=== PATIENT | female | born 1940 | race Caucasian/White ===

== ENCOUNTER 2017-01-07 09:02 | Emergency (ER) | payer BC, OTHER ==
[2017-01-07 09:06] VITALS: TEMP 97.7; BMI 34.9
[2017-01-07 09:46] LABS: BASOPHIL 0.5 % (0-2.0); EOSINOPHIL 2.7 % (0-4.5); MCH 30.6 pg (25.7-33.7); MCHC 33.2 g/dl (32.0-36.0); MEAN CELL VOLUME 92.3 fl (80-96); NEUTROPHILS 60.2 % (42.8-82.8); PLATELET COUNT 169 K/MM3 (134-434); RDW 14.6 % (11.6-15.6); WHITE BLOOD COUNT 5.2 K/mm3 (4.0-10.0)
--- NOTE | 2017-01-07 09:50 | PDOC ---
History of Present Illness - General Chief Complaint: Pain Stated Complaint: PAIN Abd/ diarrhea Time Seen by Provider: 01/07/17 09:43 History Source: Patient Exam Limitations: No Limitations - History of Present Illness Travel History: No Initial Comments: 01/07/17 11:37 76-year-old female with HTN presents to the emergency department complaining of lower abdominal pain 4 days. Pain is described as 5/10 dull nonradiating intermittent discomfort. There are no exacerbating or alleviating factors. Pain is associated with nausea but she denies vomiting, fever/chills, chest pain, shortness of breath, flank pains, urinary symptoms: Frequency/urgency/hesitancy , hematuria. Patient tried taking Nexium without relief. Timing/Duration: reports: intermittent Quality: reports: mild Abdominal Pain Onset Location: reports: RLQ, LLQ, epigastric Pain Radiation: reports: no radiation Aggravating Factors: improves with: None Alleviating Factors: improves with: None Past History - Past Medical History Allergies/Adverse Reactions: Allergies Allergy/AdvReac Type Severity Reaction Status Date / Time valsartan [From Diovan] Allergy THROAT Verified 01/07/17 09:06 SWELLING, SEVERE HYPOTENSION Home Medications: Ambulatory Orders Levothyroxine Sodium [Synthroid] 100 mcg PO DAILY 12/10/11 Lisinopril [Prinivil] 20 mg PO DAILY 07/31/15 Anemia: No Asthma: Yes Cancer: No Cardiac Disorders: No CVA: No COPD: No CHF: No Dementia: No Diabetes: No GI Disorders: Yes (REFLUX) Disorders: Yes (UREGENCY, STRESS INCONTINENCE) HTN: Yes Hypercholesterolemia: No Liver Disease: No Seizures: No Thyroid Disease: Yes (HYPO) Other medical history: Ostearthritis - Surgical History Abdominal Surgery: No Appendectomy: No Cardiac Surgery: No Cholecystectomy: Yes Lung Surgery: No Neurologic Surgery: No Orthopedic Surgery: Yes (R KNEE ARTHROSCOPY) - Immunization History Td Vaccination: Yes TDAP Vaccination: Yes Immunization Up to Date: No - Psycho/Social/Smoking Cessation Hx Anxiety: No Suicidal Ideation: No Smoking Status: No Smoking History: Never smoked Number of Cigarettes Smoked Daily: 0 Cigars Per Day: 0 Information on smoking cessation initiated: No Hx Alcohol Use: No Drug/Substance Use Hx: No Substance Use Type: None Hx Substance Use Treatment: No Abd/GI Specific PMHX - Complaint Specific PMHX GERD: Yes Review of Systems - Review of Systems Able to Perform ROS?: Yes Comments:: 01/07/17 09:49 CONSTITUTIONAL: Absent: fever, chills, diaphoresis, generalized weakness, malaise, loss of appetite HEENT: Absent: rhinorrhea, nasal congestion, throat pain, throat swelling, difficulty swallowing, mouth swelling, ear pain, eye pain, visual Changes CARDIOVASCULAR: Absent: chest pain, loss of consciousness, palpitations, irregular heart rate, peripheral edema RESPIRATORY: Absent: cough, shortness of breath, dyspnea with exertion, orthopnea, wheezing, stridor, hemoptysis GASTROINTESTINAL: +lower abd diffuse Absent:, abdominal distension, nausea, vomiting, diarrhea, constipation, melena , hematochezia GENITOURINARY: Absent: dysuria, frequency, urgency, hesitancy, hematuria, flank pain, genital pain MUSCULOSKELETAL: Absent: myalgia, arthralgia, joint swelling SKIN: Absent: rash, itching, pallor HEMATOLOGIC/IMMUNOLOGIC: Absent: easy bleeding, easy bruising, lymphadenopathy, frequent infections ENDOCRINE: Absent: unexplained weight gain, unexplained weight loss, heat intolerance, cold intolerance NEUROLOGIC: Absent: headache, focal weakness or paresthesias, dizziness, unsteady gait, seizure, mental status changes, bladder or bowel incontinence PSYCHIATRIC: Absent: anxiety, depression, suicidal or homicidal ideation, hallucinations. Is the patient limited Turkmen proficient: No *Physical Exam - Vital Signs Last Vital Signs Temp Pulse Resp BP Pulse Ox 97.7 F 53 L 17 144/74 99 01/07/17 09:04 01/07/17 09:04 01/07/17 09:04 01/07/17 09:04 01/07/17 09:04 - Physical Exam Comments: 01/07/17 09:49 GENERAL: Well developed, well nourished. Awake and alert. No acute distress. HEENT: Normocephalic, atraumatic. PERRLA, EOMI. No conjunctival pallor. Sclera are non- icteric. Moist mucous membranes. Oropharynx is clear. NECK: Supple. Full ROM. No JVD. Carotid pulses 2+ and symmetric, without bruits. No thyromegaly. No lymphadenopathy. CARDIOVASCULAR: Regular rate and rhythm. No murmurs, rubs, or gallops. Distal pulses are 2+ and symmetric. PULMONARY: No evidence of respiratory distress. Lungs clear to auscultation bilaterally. No wheezing, rales or rhonchi. ABDOMINAL: Soft. Non-tender. Non-distended. No rebound or guarding. No organomegaly. Normoactive bowel sounds. MUSCULOSKELETAL Normal range of motion at all joints. No bony deformities or tenderness. No CVA tenderness. EXTREMITIES: No cyanosis. No clubbing. No edema. No calf tenderness. SKIN: Warm and dry. Normal capillary refill. No rashes. No jaundice. NEUROLOGICAL: Alert, awake, appropriate. Cranial nerves 2-12 intact. No deficits to light touch and temperature in face, upper extremities and lower extremities. No motor deficits in the in face, upper extremities and lower extremities. Normoreflexic in the upper and lower extremities. Normal speech. Toes are down- going bilaterally. Gait is normal without ataxia. PSYCHIATRIC: Cooperative. Good eye contact. Appropriate mood and affect. ED Treatment Course - LABORATORY CBC & Chemistry Diagram: 01/07/17 09:36 01/07/17 09:36 Progress Note - Progress Note Progress Note: 1318hrs: Spoke to Rad[employer]; CAT scan abdomen and pelvis with by mouth and IV contrast impression: Thickening of the proximal to addendum mainly involving the second portion with inadequate distention of the junction of the gastric antrum and duodenum that maybe they can as well. There is also thickening of the distal small bowel loops in the lower abdomen and pelvis with sparing of the terminal ileum suggestive of enteritis, inflammatory versus infectious. Normal-appearing appendix. Minimal free fluid in the right lower quadrant/right hemipelvis of uncertain etiology. 1352hrs: Spoke to Dr. Rousseau/ covering for DR. Becker. will consult in the ER 1520hrs: Seen by GI/Dr. Rousseau, states to d/c and f/u outpt *DC/Admit/Observation/Transfer Diagnosis at time of Disposition: Abdominal pain Qualifiers: Abdominal location: generalized Qualified Code(s): R10.84 - Generalized abdominal pain - Discharge Dispostion Disposition: HOME Condition at time of disposition: Stable Admit: No - Referrals Referrals: Stan Rousseau MD [Staff Physician] - - Patient Instructions Printed Discharge Instructions: DI for Abdominal Pain-Adult Additional Instructions: Follow up with the robotic maintenance technician this week Return to the ER for severe/persistent/worsening symptoms
[2017-01-07 10:09] LABS: ALBUMIN 3.3 g/dl (3.4-5.0); ANION GAP 3 (8-16); BILIRUBIN,TOTAL 0.4 mg/dL (0.2-1.0); CALCIUM 8.5 mg/dL (8.5-10.1); CO2 31 mmol/L (21-32); CREATININE 0.7 mg/dL (0.55-1.02); GLUCOSE,RANDOM 102 mg/dL (74-106); SGOT/AST 39 U/L (15-37); SGPT/ALT 48 U/L (12-78)
[2017-01-07 10:10] LABS: ALK PHOS 71 U/L (45-117); TOT PROT 6.7 g/dl (6.4-8.2)
--- NOTE | 2017-01-07 10:13 | PDOC ---
*Physical Exam - Vital Signs Last Vital Signs Temp Pulse Resp BP Pulse Ox 97.7 F 53 L 17 144/74 99 01/07/17 09:04 01/07/17 09:04 01/07/17 09:04 01/07/17 09:04 01/07/17 09:04 ED Treatment Course - LABORATORY CBC & Chemistry Diagram: 01/07/17 09:36 01/07/17 09:36 - ADDITIONAL ORDERS Additional order review: Laboratory Results 01/07/17 09:36 Total Amylase 52 Medical Decision Making - Medical Decision Making 01/07/17 10:12 76 yo F presenting to the Er with a complaint of abdominal pain CT: Bowel wall thickening suggestive of enteritis, inflammatory versus infectious. Normal-appearing appendix. Minimal free fluid in the right lower quadrant/right hemipelvis of uncertain etiology. Pt seen by Midlevel Provider under my direct supervision Pt interviewed and examined Ancillary studies reviewed Case reviewed with GI I agree with plan as outlined by Midlevel Provider *DC/Admit/Observation/Transfer Diagnosis at time of Disposition: Abdominal pain - Discharge Dispostion Disposition: HOME Condition at time of disposition: Stable - Referrals Referrals: Stan Rousseau MD [Staff Physician] - - Patient Instructions Printed Discharge Instructions: DI for Abdominal Pain-Adult Additional Instructions: Follow up with the metal window frame maker this week Return to the ER for severe/persistent/worsening symptoms
[2017-01-07 15:42] VITALS: BP 145/72; PULSE 61
== END 2017-01-07 15:41 | disposition home or self-care (01) ==
LOC: JER 09:02
DX: R10.84 Generalized abdominal pain (principal); K21.9 Gastro-esophageal reflux disease without esophagitis; I10 Essential (primary) hypertension; J45.909 Unspecified asthma, uncomplicated; E03.9 Hypothyroidism, unspecified
CPT/HCPCS: 36415; 74177-TC; 80053; 82150; 83690; 85025; 99282-25; Q9967

== ENCOUNTER 2017-03-28 08:28 | Day surgery (SDC) | payer BC, OTHER ==
[2017-03-27 14:05] VITALS: BMI 34.5
[2017-03-28] MEDS ORDERED: PROPOFOL 20 ML ONE ×2 (09:08)
[2017-03-28 09:42] VITALS: TEMP 97.4
[2017-03-28 10:27] VITALS: BP 125/60; PULSE 50
--- NOTE | 2017-03-31 12:17 | PATH ---
Surgical Pathology Report Patient Name: CASANDRA KOO [facility]. Rec. #: [id number] /Age/Gender: 1940 (Age: 77) / F Account: [id number] Location: [facility]-ENDOSCOPY Taken: 03/28/2017 Received: 03/28/2017 Reported: 03/31/2017 Physicians: Pardeep Curry M.D. Specimen(s) Received A: BX GASTRIC POLYP B: BX ESOPHAGUS Clinical History Dysphagia Gastric polyps, hiatal hernia Final Diagnosis A. STOMACH, POLYP, BIOPSY: HYPERPLASTIC FOVEOLAR GLAND POLYP WITH MILD CHRONIC GASTRITIS. IMMUNOSTAIN FOR H. PYLORI IS NEGATIVE. B. ESOPHAGUS, BIOPSY: SQUAMOUS EPITHELIUM WITH NO PATHOLOGIC CHANGES. NO INTESTINAL METAPLASIA IDENTIFIED (NO SANDOVAL'S IDENTIFIED). NO EOSINOPHILIC ESOPHAGITIS IDENTIFIED. Electronically Signed Edgar Gold M.D. Gross Description A. Received in formalin, labeled "biopsy gastric polyp" are 4 squires, irregular portions of soft tissue ranging from 0.1-0.3 cm. in greatest dimension. The specimens are submitted in toto in one cassette. B. Received in formalin, labeled "biopsy esophagus" is a squires, irregular portion of soft tissue measuring 0.3 cm. in greatest dimension. The specimen is submitted in toto in one cassette. 03/28/201703/28/2017
== END 2017-03-28 10:35 | disposition home or self-care (01) ==
LOC: JASU-ENDO 08:28
PROVIDERS: ATTEND Internal Medicine Gastroenterology
PROC: 0DB68ZX Excision of Stomach, Via Natural or Artificial Opening Endoscopic, Diagnostic (ICD-10-PCS; 2017-03-28)
PROC: 0DB58ZX Excision of Esophagus, Via Natural or Artificial Opening Endoscopic, Diagnostic (ICD-10-PCS; principal; 2017-03-28 09:00)
DX: K44.9 Diaphragmatic hernia without obstruction or gangrene (principal); R13.10 Dysphagia, unspecified; K31.7 Polyp of stomach and duodenum
CPT/HCPCS: 88305-TC; 88342-TC